=== PATIENT | male | born 1970 | race Caucasian/White ===

== ENCOUNTER 2017-07-31 09:28 | Inpatient (IN) | payer MEDICAID ==
[~2017-07-31] VITALS: Ht 175.3 cm; Wt 122.7 kg
[2017-07-31] MEDS ORDERED: OLAN2.5T3 PO (10:12)
[2017-07-31 10:16] LABS: BASOPHILS % (AUTO) 0.4 % (0.0-2.0); EOSINOPHILS % (AUTO) 6.6 % (1.0-6.0); HEMOGLOBIN 12.1 g/dL (13.5-17.5); LYMPHOCYTES # (AUTO) 0.8 K/uL (1.0-4.8); LYMPHOCYTES % (AUTO) 6.9 % (22.0-44.0); MEAN CORPUSCULAR HEMOGLOBIN 25.8 pg (26.0-34.0); MEAN CORPUSCULAR HGB CONC 32.7 G/dL (31.0-37.0); MEAN CORPUSCULAR VOLUME 79 fL (80-100); MONOCYTES % (AUTO) 7.9 % (2.0-9.0); NEUTROPHILS # (AUTO) 9.5 K/uL (1.8-7.7); NEUTROPHILS % (AUTO) 78.2 % (40.0-70.0); PLATELET COUNT (AUTO) 229 K/uL (150-450); RED BLOOD CELL COUNT(AUTO) 4.69 MIL/uL (4.50-5.90); RED CELL DISTRIBUTION WIDTH 16.7 % (11.5-14.5)
[2017-07-31 10:40] LABS: ANION GAP 6 mmol/L (8-16); CALCIUM, TOTAL 8.4 mg/dL (8.8-10.5); CARBON DIOXIDE 29 mmol/L (22-29); CHLORIDE 101 mmol/L (98-107); CREATININE 1.05 mg/dL (0.60-1.30); GLOMERULAR FILTR. RATE CALC > 60 mL/min (>60); GLUCOSE,RANDOM 95 mg/dL (70-110); POTASSIUM 3.9 mmol/L (3.5-5.1); SODIUM SERUM 136 mmol/L (136-145); UREA NITROGEN, BLOOD 13 mg/dL (7-18)
[2017-07-31] MEDS ORDERED: PERMETHRIN 1% 60 ML LOTION TP ONE (10:45)
[2017-07-31] MEDS ORDERED: PERMETHRIN 5% 60 GM CREAM TP ONE (10:45)
[2017-07-31 10:47] LABS: ALANINE AMINOTRANSFERASE 19 U/L (12-78); ALBUMIN 2.5 g/dL (3.4-5.0); ALKALINE PHOSPHATASE 66 U/L (46-116); ASPARTATE AMINOTRANSFERASE 18 U/L (15-37); BILIRUBIN,TOTAL 0.4 mg/dL (0.1-1.0)
[2017-07-31] MEDS ORDERED: LORazepam 2 MG TABLET PO PRN (13:15)
[2017-07-31] MEDS ORDERED: ZOLPIDEM TARTRATE 10 MG TABLET PO PRN (13:15)
[2017-07-31] MEDS ORDERED: HALOPERIDOL 5 MG TABLET PO PRN (13:15)
[2017-07-31 15:03] VITALS: BP 122/76
[2017-07-31 16:00] VITALS: BP 102/58
[2017-08-01 04:51] VITALS: BP 115/67
[2017-08-01 07:35] LABS: CHOL/HDL RATIO 3.3 (4.2-7.3)
[2017-08-01 08:00] VITALS: BP 117/64
[2017-08-01] MEDS: OLANZapine 2.5 MG TABLET PO SCH ×2 (09:46→16:33)
[2017-08-01 16:52] VITALS: BP 113/58
[2017-08-02 03:02] VITALS: BP 125/74
[2017-08-02 09:39] VITALS: BP 130/86
[2017-08-02] MEDS: OLANZapine 2.5 MG TABLET PO SCH ×2 (11:00→17:45)
[2017-08-03 01:56] VITALS: BP 128/80
[2017-08-03] MEDS: OLANZapine 2.5 MG TABLET PO SCH ×2 (09:20→18:06)
[2017-08-03 09:55] VITALS: BP 116/50
[2017-08-03 16:00] VITALS: BP 145/87
[2017-08-04] MEDS: OLANZapine 2.5 MG TABLET PO SCH (09:02)
[2017-08-04 09:29] VITALS: BP 110/64
[2017-08-04] MEDS: OLANZapine 5 MG TABLET PO SCH (16:21)
[2017-08-05 00:30] VITALS: BP 122/71
[2017-08-05 08:42] VITALS: BP 112/63
[2017-08-05] MEDS: OLANZapine 5 MG TABLET PO SCH ×2 (10:31→17:09)
[2017-08-05 16:15] VITALS: BP 116/70
[2017-08-06 08:00] VITALS: BP 134/78
[2017-08-06] MEDS: OLANZapine 5 MG TABLET PO SCH (11:22)
[2017-08-06] MEDS ORDERED: OLAN5TAB2 PO (12:43)
== END 2017-08-06 15:32 | disposition home or self-care (01) | DRG 750 ==
LOC: EMS 09:29 → 3EI 14:09
PROVIDERS: ADMIT Psychiatry & Neurology Psychiatry; ATTEND Psychiatry & Neurology Psychiatry
DX: F20.0 Paranoid schizophrenia (principal); E46 Unspecified protein-calorie malnutrition; E88.09 Other disorders of plasma-protein metabolism, not elsewhere classified; Z91.19 Patient's noncompliance with other medical treatment and regimen; D64.9 Anemia, unspecified; D72.829 Elevated white blood cell count, unspecified; B86 Scabies; B85.2 Pediculosis, unspecified; F17.200 Nicotine dependence, unspecified, uncomplicated; R45.87 Impulsiveness; Z59.0 Homelessness; Z91.048 Other nonmedicinal substance allergy status; Z71.6 Tobacco abuse counseling
CPT/HCPCS: 99285; G0480